=== PATIENT | male | born 1995 | race Caucasian/White ===

== ENCOUNTER → 2022-03-22 | Day surgery (SDC) | payer OTHER ==
[~2022-03-22] VITALS: Ht 175.3 cm; Wt 52.2 kg
[2022-03-22 09:27] LABS: EOSINOPHIL 5.1 % (0-5); HCT 44.3 % (42.0-52.0); HGB 14.8 g/dl (13.2-18.0); LYMPHOCYTE 29.7 % (15-48); MCH 31.2 pg (25.0-31.0); MCHC 33.4 g/dL (32.0-36.0); MCV 93.5 fL (78.0-100.0); MONOCYTE 8.1 % (0-12); MPV 9.3 fL (6.0-9.5); NEUTROPHIL 55.8 % (41-80); NRBC 0; PLT 251 K/uL (150-400); RBC 4.74 M/uL (4.70-6.00); RDW 13.1 % (11.5-14.0); WBC 12.4 K/uL (4.0-10.5)
== END | disposition home or self-care (01) ==
LOC: FAS 08:52
PROVIDERS: Oral & Maxillofacial Surgery
DX: K02.9 Dental caries, unspecified (principal); K04.7 Periapical abscess without sinus; F41.9 Anxiety disorder, unspecified; Z88.1 Allergy status to other antibiotic agents
CPT/HCPCS: D7140; D7210; D7310; 36415; 85025; J1100; J1885; J2250; J2405; J2704; J3010; J7120